=== PATIENT | female | born 1990 | race Caucasian/White ===

== ENCOUNTER 2016-09-07 20:15 | Emergency (ER) | payer BC, OTHER ==
[2016-09-07] MEDS ORDERED: LORAZEPAM 0.5 MG TABLET PO ONE (22:22)
[2016-09-07] MEDS ORDERED: ACETAMINOPHEN 325 MG TABLET PO ONE (22:22)
--- NOTE | 2016-09-07 22:23 | ER Document Report ---
HPI - HPI Patient complains to provider of: anxiety Pain Level: 0 Context: Patient is a 18-year-old female presents emergency department after an anxiety attack earlier this evening. Patient states she has a history of anxiety and is undergoing a lot of stress at the moment, on Zoloft. Has a psychiatrist, is not on any benzodiazepines. Currently denies any suicidal or homicidal ideations. States that she is feeling a lot better but is anxious about going home and is embarrassed to have another panic attack in front of her children. Her psychiatrist is Dr. Harp - [facility] Skin Color: Normal, [place] Past Medical History - Social History Smoking Status: Never Smoker Chew tobacco use (# tins/day): No Frequency of alcohol use: None Drug Abuse: None Family History: Reviewed & Not Pertinent Patient has suicidal ideation: No Patient has homicidal ideation: No Renal/ Medical History: Denies: Hx Peritoneal Dialysis Past Surgical History: Reports: Hx Section - Immunizations Hx Diphtheria, Pertussis, Tetanus Vaccination: No Vertical Provider Document - CONSTITUTIONAL Agree With Documented VS: No - RR 18 during physical exam Exam Limitations: No Limitations General Appearance: WD/WN, No Apparent Distress - INFECTION CONTROL TRAVEL OUTSIDE OF THE [place] IN LAST 30 DAYS: No - HEENT HEENT: Atraumatic, Normocephalic - RESPIRATORY Respiratory: Breath Sounds Normal, No Respiratory Distress, Chest Non-Tender O2 Sat by Pulse Oximetry: 98 - CARDIOVASCULAR Cardiovascular: Regular Rate, Regular Rhythm, No Murmur Pulses: Normal: Radial - MUSCULOSKELETAL/EXTREMETIES Musculoskeletal/Extremeties: MAEW, FROM, Non-Tender - NEURO Level of Consciousness: Awake, Alert, Appropriate. negative: Agitated Motor/Sensory: No Motor Deficit, No Sensory Deficit Course - Re-evaluation Re-evalutation: 09/08/16 07:35 pateint is a not a threat to herself or others. She is alert and cooperative during exam. patient given a one-time dose of Ativan. Discussed with her follow -up with her psychiatrist and primary care. - Vital Signs Vital signs: Temp Pulse Resp BP Pulse Ox 98.4 F 102 H 26 H 130/90 H 98 09/07/16 20:15 09/07/16 20:15 09/07/16 20:15 09/07/16 20:15 09/07/16 20:15 Discharge - Discharge Clinical Impression: Anxiety Condition: Good Disposition: HOME, SELF-CARE Instructions: Anxiety (OM) Additional Instructions: Follow-up with your mental health providers next week. Referrals: RAH MONTOYA MD [ACTIVE STAFF] - Follow up in 1 week
[2016-09-07 22:45] VITALS: BP 106/74
== END 2016-09-07 22:45 | disposition home or self-care (01) ==
LOC: ER 20:15
DX: F41.9 Anxiety disorder, unspecified (principal)
CPT/HCPCS: 99283